=== PATIENT | female | born 1990 | race Native Hawaiian/Other Pacific Islander ===

== ENCOUNTER 2017-03-30 20:00 | Observation (INO) | payer OTHER ==
[~2017-03-30] VITALS: Ht 160 cm; Wt 80.7 kg
[2017-03-30 22:35] VITALS: BP 110/68
== END 2017-03-30 21:45 | disposition home or self-care (01) ==
LOC: MLD 20:00
PROVIDERS: ADMIT Obstetrics & Gynecology; ATTEND Obstetrics & Gynecology
DX: O26.893 Other specified pregnancy related conditions, third trimester (principal); R55 Syncope and collapse; Z3A.33 33 weeks gestation of pregnancy
CPT/HCPCS: G0378